=== PATIENT | male | born 1940 ===

== ENCOUNTER 2020-03-22 14:20 | Inpatient (IN) | payer MEDICARE, OTHER, SELFPAY ==
--- NOTE | 2020-03-22 | USCV_ITS ---
Victor Hugotirso Guillaume Age: 79 Gender: M : 1940 Exam Date: 03/22/2020 16:59 Ordering Phys: Sukumar Kaur MD Technologist: Yosef Hirsch Exam Location: [facility] [place] Indication: EF BP: / HR: Rhythm: Sinus Technical Quality: Adequate MEASUREMENTS (Male / Female) Normal Values FINDINGS Left Ventricle This is a 2D examination only during a cardio [place] arrest. There is virtually no wall motion in the anterior wall, apex and lateral wall. There is minimal wall motion in the inferior base. 1 can see the motion of the mitral valve in the aortic valve. The ejection fraction is in the single digits probably 5%. The ventricle is enlarged. Nothing else was visualized. Right Ventricle Right ventricle not well visualized. Right Atrium Right atrium not well visualized. Left Atrium Left atrium not well visualized. Mitral Valve Structurally normal mitral valve. Aortic Valve Structurally normal trileaflet aortic valve. Tricuspid Valve Tricuspid valve not well visualized. Pulmonic Valve Structurally normal pulmonic valve without significant stenosis. There is no pulmonic regurgitation. Pericardium Normal pericardium without effusion. Aorta Normal ascending aorta dimension. CONCLUSIONS This is a 2D examination only during a cardio [place] arrest. There is virtually no wall motion in the anterior wall, apex and lateral wall. There is minimal wall motion in the inferior base. 1 can see the motion of the mitral valve in the aortic valve. The ejection fraction is in the single digits probably 5%. The ventricle is enlarged. Nothing else was visualized. There are no prior echocardiogram studies to compare. Dr. Sukumar Kaur MD (Electronically Signed) Final Date: 22 Mar 2020 17:58 S
[2020-03-22 14:48] VITALS: O2SAT 94
[2020-03-22] MEDS: morphine 4 mg/mL SDV 1 mL 2 MG IVP (14:53)
[2020-03-22] MEDS: sodium chloride 0.9% 1,000 ML 999 ML IV ×2 (14:54→15:04)
--- NOTE | 2020-03-22 14:54 | XACV_ITS ---
Exam Room: [facility] Ht: 180 cm Wt: 70 kg BSA: 1.87 m2 Gender: Male : 1940 Any Known Allergies: Penicillins Exam Priority: Routine Indication(s): - Acute coronary syndrome Procedure(s): Procedure Description: Diagnostic procedure Procedure Description: Left Heart Catheterization Procedure Description: Coronary Angiography Diagnostic Cath Status: Emergency Diagnostic Findings Patient with previous circumflex distribution myocardial infarction and heavy tobacco abuse presents with chest discomfort and an anterior wall MS by EKG. Brought directly to the cardiac catheterization laboratory. Coronary angiography reveals right coronary artery dominance. The left main is heavily calcified. The circumflex is patent. The previously placed stent is patent with very heavy calcification. There is very minimal in-stent restenosis. The LAD is occluded at the origin. The LAD is likewise heavily calcified. The right coronary artery is the dominant vessel but is fairly small. This could actually be a codominant system. The mid right there is a hazy 70 to 80% stenosis. PCI Status: Emergency PCI LVEF Assessed: No PCI Indication: STEMI - Immediate PCI for STEMI Interventional Findings Multiple wires were placed. The first wire was a cougar wire. A 2.5-2.1 and 1.5 mm balloons would not pass the ostial LAD due to the heavy calcification. Subsequently a run-through wire was placed while the cougar wire was in place. An attempt at a po wire technique also failed to allow a balloon to pass the lesion. Finally those 2 wires were removed and a grand slam wire was placed. Likewise I could not pass even a small balloon. The procedure was then abandoned. Decision for PCI with Surgical Consult: No PCI for Multi-vessel Disease: No Conclusions Previous circumflex distribution MS. Acute anterior wall MS with occluded LAD. Failure to open the artery. Subsequent cardiac arrest while in the Vascular Nurse and ultimate expiration. I spoke to the patient's 2 sisters at the end of the procedure. Pressures Phase:Rest AO : 55 mmHg / 46 mmHg ( 51 mmHg ) @ 10:20:00 AM 61 mmHg / 49 mmHg ( 56 mmHg ) @ 10:30:00 AM 51 mmHg / 47 mmHg ( 52 mmHg ) @ 10:32:00 AM 65 mmHg / 53 mmHg ( 59 mmHg ) @ 10:39:00 AM Procedural Details Pre-Procedure Time Out. Identified patient by full name and date of as verbalized by the patient/guarantor. Does the consent match the physician's order: Yes. Vital chart was stopped. Accurate & Complete Informed Consent: N/A Emergent. Inpatient/Outpatient History & Physical on Chart: N/A Emergent. If H&P is completed, is and addenduem needed: N/A Emergent; If yes, is the addendum complete: N/A Emergent; Informed Consent not obtained due to time critical life threat. Pre-op teaching completed and patient verbalized understanding. The risks, benefits, and alternatives of sedation and/or procedure were discussed by physician. The patient agrees to continue. Procedure started. Vascular Nurse Indications: ACS <= 24 hours. Chest Pain Symptom Assessment: Typical Angina Symptoms. Cardiovascular Instability: Yes, if yes, Persistant Ischemic Symptoms. Correct patient, site and procedure confirmed by cath team. Current diagnosis: STEMI. PERRLA. 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 Lungs clear x 5 lobes. IV Site on Arrival: 18 gauge in the right anticubital. IV Site on Arrival: 18 gauge in the left anticubital. IV Fluids: 0.9% NaCl at KVO. 800 mL infused prior to cath lab tech. Oxygen started at 2liters/min via nasal canula. right radial was prepped with chloroprep then draped in the usual sterile fashion. Physician notified. Baseline sample Acquired. HR: 103 BPM. Equipment: 6F - Radial. Cardiac Cath Pack. Heparinized Saline (2 units/mL), 1000 mL bag. ACIST Manifold Kit Model BT 2000. Physician arrived. Physician scrubbed in. Immediate Pre-Procedure Time Out. Correct Patient: Yes; Correct Procedure: Yes; Correct Site: Yes; Correct Patient Position: Yes; Correct Supplies: Yes; Dried Flammable Prep: Yes; Blood Products Available: N/A. Lidocaine 1% infiltrated to the right radial. Arterial access obtained. PCI Indication: STEMI. 6 citizen of [place] XB 3.5 guide catheter was inserted over the wire. [place] guidewire was advanced through the guide catheter to lesion in the prox LAD. trex 2.5 x 15 in and unable to advance. Guidliner in. mini trex 2.0 x 12 in and unable to advance. Guidliner and balloon out. Runthrough guidewire was advanced through the guide catheter to lesion in the prox LAD. Delay in PCI related to difficulty crossing lesion. AP Pads placed on the patient. mini trex 2.0 x 12 in and unable to advance. The patient's sister, Chiara An, was called to update with no answer. A message was left. mini trex 1.5 x 8 in and unable to advance. Runthrough wire out. [place] guidewire was advanced through the guide catheter to lesion in the prox LAD. Current Diagnosis : STEMI. mini trex 1.5 x 8 in and unable to advance. Wires out. Guide catheter out. A CRD 6F JR4 100cm Diagnostic Catheter was advanced over the wire and used for Right coronary angiography. Multiple views taken of right coronary artery. Catheter out. TR band placed. Hemostasis obtained. Physician scrubbed out. Post Procedure: bilateral radial pulse 2+. PERRLA. 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 No VTE prophylaxis required. Medication's Wasted: Heparin = 1000 Units. Medication's Wasted: Lidocaine 1% = 18 mL. Medication's Wasted: Nitro = 49.8 mg. Total IV fluids: 400 mL. A TR Band was successful obtaining hemostatsis at the Right Radial artery insertion site. Jamin Mcdonald relieved Donna Foster on monitor. CPR started, code called. Vital chart was stopped. See code sheet for all charting. Patient . Procedure completed. Site: Right Radial artery Sheath Size: 6 Fr Hemostasis Method: TR Band Hemostasis Success: Successful Complication Findings: At the end of the procedure with the inability to open the vessel patient was taken off the catheterization laboratory table and placed on the bed. He subsequently had a cardiac arrest. A valiant attempt was made to resuscitate him. Multiple rounds of epinephrine, bicarb and a dose of amiodarone were used. Patient's primary rhythm was pulseless electrical activity. CPR was attempted for approximately 1 hour. An ultrasound device was used to assess whether or not there was any cardiac wall motion. There was essentially none. Code was called and after an hour of resuscitation attempts the patient was pronounced . Procedure Medications Start: 3:12 PM Stop: 3:12 PM Medication: Versed Amount: 1 mg Route: I.V. Start: 3:12 PM Stop: 3:12 PM Medication: Fentanyl Amount: 50 mcg Route: I.V. Start: 3:16 PM Stop: 3:16 PM Medication: Nitrogylcerin Amount: 200 mcg Route: I.A. Start: 3:16 PM Stop: 3:16 PM Medication: Verapamil Amount: 5 mg Route: I.A. I, the attending physician, have reviewed and verified all procedure medications. Yes, all medications given per verbal order History/Risk Factors Renal Disease: No Tobacco Use: Current/Recent(w/in 1 year) Prior Interventions PCI: Yes CABG: No Date of PCI: 09/14/2016 Report Signatures Finalized by:Dr. Sukumar Kaur MD on 03/22/2020 5:36:06 PM
[2020-03-22 14:56] VITALS: BP 105/75; PULSE 99; RESP 22
--- NOTE | 2020-03-22 14:57 | PM.HP ---
Providers/Chief Complaint Admitting Physician: Natasha Primary Care Provider: Benjamin Vegas Jr, MD Chief Complaint: cp History of Present Illness Guillaume Huthcison is a 79 year old male who has a prior history of an acute TN in the distribution of the circumflex a few years ago. He also has glucose intolerance and is a smoker. He decided not to stop smoking. About 2 or 3 hours ago he began to have some discomfort in his chest which radiated down his arm. He cannot describe it much more than that. No obvious diaphoresis or shortness of breath. He came to the emergency room and has ST elevation in the anterior precordial leads from V1 through V4. Review of Systems General: Reports: 10 or more systems reviewed and unremarkable except in HPI and below Medications/Allergies Home Medications Medication Instructions Recorded Confirmed Last Taken Type aspirin 81 mg tablet,delayed 81 mg PO DAILY 01/15/20 03/22/20 Unknown History release clopidogrel 75 mg tablet 75 mg PO DAILY 01/15/20 03/22/20 Unknown History metoprolol tartrate 25 mg tablet 12.5 mg PO BID 01/15/20 03/22/20 Unknown History simvastatin 40 mg tablet 40 mg PO DAILY 01/15/20 03/22/20 Unknown History Allergies Allergy/AdvReac Type Severity Reaction Status Date / Time Penicillins Allergy Unknown Unknown Unverified 01/15/20 11:16 PFSH Acute PFSH: Medical History (Updated 03/22/20 @ 15:00 by Sukumar Kaur MD) ASHD (arteriosclerotic heart disease) Atrial fibrillation COPD (chronic obstructive pulmonary disease) Ischemic cardiomyopathy Myocardial infarction Tobacco abuse Surgical History S/P PTCA (percutaneous transluminal coronary angioplasty) Social History Smoking and tobacco status: never smoked Vitals/I&O/Wt Last Vital Signs Pulse 99 03/22/20 14:56 Resp 22 H 03/22/20 14:56 BP 105/75 03/22/20 14:56 Pulse Ox 94 03/22/20 14:48 Physical Exam Narrative: EXAM NARRATIVE: GENERAL: He is his usual ornery self. HEENT: Exam within normal limits. NECK: Supple without jugular vein distention. The carotid upstroke is normal without bruits. BACK: Exam normal. LUNGS: Clear. HEART: Regular rate and rhythm. ABDOMEN: Benign without organomegaly or tenderness. EXTREMITIES: No edema. NEUROLOGIC: Exam normal. SKIN: Unremarkable. Data Other Labs: EKG reveals sinus rhythm with a right bundle branch block and ST elevation leads V1 through V4 with some ST elevation in lead I and lead aVL. A&P Assessment and plan (1) Tobacco abuse: Status: Acute (2) Atrial fibrillation: Status: Acute (3) Myocardial infarction: Status: Acute (4) Ischemic cardiomyopathy: Status: Acute (5) COPD (chronic obstructive pulmonary disease): Status: Acute (6) ASHD (arteriosclerotic heart disease): Status: Acute (7) S/P PTCA (percutaneous transluminal coronary angioplasty): Status: Acute (8) Acute anterior wall TN: Status: Acute Additional A&P Information Acute anterior wall myocardial infarction today. He will go straight to the catheterization laboratory. 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
--- NOTE | 2020-03-22 15:00 | ECG_ITS ---
Measurements Intervals [place] Rate: 89 P: 77 AL: 165 QRS: 99 QRSD: 145 T: 60 QT: 346 QTc: 421 SINUS RHYTHM POSSIBLE LEFT ATRIAL ENLARGEMENT [-0.1mV P WAVE IN V1/V2] RIGHT AXIS DEVIATION RIGHT BUNDLE BRANCH BLOCK ST ELEVATION, CONSIDER ANTERIOR INJURY ACUTE [place] Compared to ECG 08/15/2017 14:04:28 Right bundle-branch block now present Electronically Signed On 03-23-2020 8:31:56 CDT by Keena Bustos M.D. [email or web address]
[2020-03-22 15:04] VITALS: BP 88/60; PULSE 134; RESP 27; O2SAT 87
[2020-03-22] MEDS: heparin 5,000 unit/mL INJ 1 mL 4000 UNIT IVP (15:06)
--- NOTE | 2020-03-22 15:24 | W.ED.CHESTPA ---
HPI - Chest Pain General: Chief Complaint: Chest Pain Stated Complaint: cp Time Seen by Provider: 03/22/20 14:41 Source: patient Mode of arrival: ambulatory Limitations: no limitations History of Present Illness: HPI narrative: This is a 79-year-old gentleman with a prior history of an MN about 3 to 4 years ago who presents to the emergency department with substernal chest pain radiating to his left arm that started about 2 hours ago. Pain is unrelenting. He denies diaphoresis or dizziness. He is here to be evaluated. MD complaint: chest pain Pertinent past history: coronary artery disease and prior MN Onset (ago): hour(s) (2) Timing of current episode: constant Prior episodes: Yes Onset: during rest Pain location: substernal Pain radiation: left arm Severity: moderate Quality: heaviness Relieving factors: nothing Exacerbating factors: exertion Associated symptoms: Deny abdominal pain, dyspnea, fever(s), nausea, palpitations or vomiting Review of Systems General: Reports: 10 or more systems reviewed and unremarkable except in HPI and below Const: Denies: fever, chills or body aches Eyes: Denies: change in vision or blurry vision ENMT: Denies: throat pain, enlarged tonsils, painful swallowing, hoarseness, mouth pain or swelling of lips/tongue Card: Reports: chest pain; Denies: palpitations, irregular heart rhythm, edema or swelling of feet/ankles Resp: Denies: shortness of breath, productive cough or non-productive cough GI: Denies: abdominal pain, nausea or vomiting : Denies: flank pain, painful urination, urinary frequency, urinary urgency or urinary hesitancy Musc: Denies: neck pain, back pain or extremity swelling Skin/Breast: Denies: rash, itching or redness Neuro: Denies: headache, numbness in extremities or weakness in extremities Endo: Denies: excessive urination, excessive thirst or tired all the time PFSH ED PFSH: Social History Smoking and tobacco status: never smoked Physical Exam Const: COMMON NORMALS: no apparent distress, average body habitus, oriented x3, no limitations, healthy appearing, alert and well nourished HENMT: COMMON NORMALS: normocephalic, head/scalp atraumatic and moist oral mucous membranes HEAD & SCALP: normocephalic and atraumatic Eye: COMMON NORMALS: PERRL, EOMs intact bilaterally, conjunctivae normal and no scleral icterus CONJUNCTIVA: Yes conjunctivae normal PUPIL: Yes PERRL Neck/C-Spine: COMMON NORMALS: full ROM, supple, no meningeal signs, no JVD and no carotid bruits Chest: COMMONS NORMALS: inspection of chest normal and palpation of chest normal Resp: COMMON NORMALS: normal respiratory effort, no retractions, no use of accessory muscles, clear to auscultation bilaterally and percussion normal AUSCULTATION: clear to auscultation bilaterally PERCUSSION: percussion normal Cardio: COMMON NORMALS: no JVD, regular rate, regular rhythm, S1 normal heart sound, S2 normal heart sound, no gallops, no clicks, no murmurs, no rub and peripheral pulses 2+ throughout RATE: regular rate RHYTHM: regular rhythm HEART SOUNDS: S1 normal and S2 normal PERIPHERAL PULSES: pulses 2+ throughout GI: COMMON NORMALS: normal to inspection, nondistended, normoactive bowel sounds, soft to palpation, non-tender, no hepatosplenomegaly, no masses and no bruits PALPATION: Yes soft and Yes no hepatosplenomegaly : COMMON NORMALS: Yes no CVA tenderness BLADDER/KIDNEY EXAM: Yes no CVA tenderness Back/Pelvis: COMMON NORMALS: no CVA tenderness Extremity: COMMON NORMALS: normal to inspection, full ROM, normal capillary refill, no calf tenderness and no pedal edema Neuro: COMMON NORMALS: oriented x3 SENSORIUM/ORIENTATION: Yes alert MENINGEAL SIGNS: Yes no meningeal signs Skin: COMMON NORMALS: no rashes or lesions noted, no wounds, skin turgor normal, no jaundice, no petechiae and no mottling GENERAL SKIN EXAM: no rashes or lesions noted and turgor normal Course Consultations: Consultation #1: Dr. 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 He will take the patient to the Paralegal Internship Vital Signs: Vital signs: Vital Signs Pulse Rate 134 H 03/22/20 15:04 Respiratory Rate 27 H 03/22/20 15:04 Blood Pressure 88/60 03/22/20 15:04 Pulse Oximetry 87 L 03/22/20 15:04 MDM - Chest Pain MDM Narrative: Medical decision making narrative: 79-year-old gentleman who presented to the emergency department with chest pain. EKG was consistent with a STEMI and he is taken to the Paralegal Internship for further evaluation and management. EKG Data^: EKG 1: Attestation: I personally reviewed and interpreted this EKG as follows: EKG interpretation date: 03/22/20 Prior EKG tracings: not available for review Ischemic changes: ST elevation (V1 - V3) Interpretation: sinus rhythm. 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
--- NOTE | 2020-03-22 16:21 | W.ED.CHESTPA ---
HPI - Chest Pain General: Chief Complaint: Chest Pain Stated Complaint: cp Time Seen by Provider: 03/22/20 14:41 Source: patient Mode of arrival: ambulatory Limitations: no limitations History of Present Illness: HPI narrative: HENRY QUINTANA in the [employer] was called on my arrival Dr. Kaur was in attendance and directing resuscitation. At his request patient was intubated see the note below. Patient was admitted to the emergency room earlier today for a STEMI. Pain location: substernal Quality: heaviness Relieving factors: nothing Exacerbating factors: exertion [facility] ED PFSH: Social History Smoking and tobacco status: never smoked Procedures Intubation Time out performed: No sedative: none Laryngoscope: Ruddy ET Tube Size: 8.5 ET Tube Uncuffed: Yes Tube Secured Depth (cm): 22 Tube Secured Location: teeth Tube Placement Confirmation: visualized tube passing through cords, equal breath sounds bilaterally, no breath sounds over epigastrium and confirmation by capnometry Patient Tolerated Procedure: well Additional Comments: Patient was intubated during a pause in chest compressions for pulse check. He had ROSC, He he did grab at the tube shortly after it was placed. He was given 30 of etomidate. At this point Dr. Kaur is managing further care and I left the [employer] with Dr. Kaur attending to the patient. 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
--- NOTE | 2020-03-22 17:38 | PM.DDS ---
Discharge Providers DDS Date of Admission: 03/22/20 16:27 Date Summary Completed: 03/22/20 Attending Provider at Admission: Sukumar Kaur MD Attending Provider at Discharge: Sukumar Kaur MD Primary Care Provider: MD STEPHEN Aparicio Jr Diagnoses Hospital Diagnoses (1) Tobacco abuse: (2) Atrial fibrillation: (3) Myocardial infarction: (4) Ischemic cardiomyopathy: (5) COPD (chronic obstructive pulmonary disease): (6) ASHD (arteriosclerotic heart disease): (7) S/P PTCA (percutaneous transluminal coronary angioplasty): (8) Acute anterior wall PR: (9) Cardiac arrest: (10) ST elevation myocardial infarction (STEMI): Problem details: Patient underwent angiography with an acute anterior wall PR. The LAD was occluded. Due to the heavy calcification the vessel could not be opened. At the end of the procedure after an attempted angioplasty patient had a cardio respiratory arrest. CPR and ACLS protocol were employed for approximately 1 hour when the patient was pronounced . His 2 sisters were here and in attendance. I spoke to them and they visited the patient after the procedure was completed. Reason for Visit Reason for Visit: Reason For Visit: cp Brief History: Patient presented with typical chest pain and EKG in the emergency room revealed an anterior wall PR. He was relatively hypotensive. Has had previous inferoposterior wall PR in the circumflex distribution. Patient was taken directly to the cardiac catheterization laboratory. Summary Date and Time of : Date of : 03/22/20 Additional Data: Confirmation of as documented by pronouncing clinician: no pulse, no respirations and no heart sounds Family: at bedside and contacted Additional persons at bedside: nursing staff Attending/PCP notified?: I am attending Was code activated?: Yes Autopsy requested?: No Hospice patient?: No Discharge Plan Discharge Patient Disposition: Home, Self-Care Condition: Stable Prescriptions: No Action simvastatin 40 mg tablet 40 mg PO DAILY RF: 0 metoprolol tartrate 25 mg tablet 12.5 mg PO BID RF: 0 clopidogrel 75 mg tablet 75 mg PO DAILY RF: 0 aspirin [Aspir-81] 81 mg tablet,delayed release (DR/EC) 81 mg PO DAILY RF: 0 Referrals: Benjamin Vegas Jr, MD [Primary Care Provider] - DS Attestations Time Spent in /Discharge Care*: critical care time Critical Care Time (min): 70 Quality - AMI: AMI present?: Yes Quality - Stroke: CVA present?: No Quality - VTE: VTE present?: No Coding Level of Care Code 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
== END 2020-03-22 17:40 | disposition expired ==
LOC: ER 14:59 → ICU 16:28
PROVIDERS: Admitting Provider Internal Medicine Cardiovascular Disease; Emergency Provider Family Medicine; PCP Family Medicine; Visit Provider Internal Medicine Cardiovascular Disease
PROC: 4A023N7 Measurement of Cardiac Sampling and Pressure, Left Heart, Percutaneous Approach (ICD-10-PCS; principal; 2020-03-22 14:30)
DX: I21.09 ST elevation (STEMI) myocardial infarction involving other coronary artery of anterior wall (principal); I46.9 Cardiac arrest, cause unspecified; I25.2 Old myocardial infarction; E74.39 Other disorders of intestinal carbohydrate absorption; F17.210 Nicotine dependence, cigarettes, uncomplicated; I25.10 Atherosclerotic heart disease of native coronary artery without angina pectoris; I48.91 Unspecified atrial fibrillation; J44.9 Chronic obstructive pulmonary disease, unspecified; I25.5 Ischemic cardiomyopathy; Z98.61 Coronary angioplasty status; I45.10 Unspecified right bundle-branch block; I95.9 Hypotension, unspecified
CPT/HCPCS: 12345; 31500; 93005; 93308; 93454; 96375; 99283; C1725; C1769; C1887; C1894; J0171; J1644; J2001; J2250; J2270; J3010; J3490; J7030; Q9967